=== PATIENT | male | born 1945 | race Caucasian/White ===

== ENCOUNTER 2016-08-26 22:18 | Observation (INO) | payer OTHER, BC ==
[2016-08-26] MEDS ORDERED: NS 1,000 ML IV ONE ×2 (22:24→23:23)
--- NOTE | 2016-08-26 22:34 | CPEKG ---
Heart Rate: 101 RR Interval: 594 P-R Interval: 136 QRSD Interval: 90 QT Interval: 368 QTC Interval: 477 P [place]: 68 QRS [place]: -7 T Wave [place]: 11 EKG Severity - BORDERLINE ECG - EKG Impression: SINUS TACHYCARDIA EKG Impression: MINIMAL ST DEPRESSION, INFERIOR LEADS EKG Impression: BORDERLINE PROLONGED QT INTERVAL Electronically Signed By: Nicko Casas 27-Aug-2016 06:58:16
--- NOTE | 2016-08-26 22:36 | EDPHY ---
H & P HPI/ROS: Chief Complaint: Syncope HPI: 71-year-old male with a history of hypertension, hyperlipidemia and he reports coronary artery disease had a witnessed syncopal episode approximately 30 minutes prior to arrival. Patient was standing and was witnessed to lose consciousness. He is held gently to the ground. He did have some posturing at that time. He did wake up and is awake and alert but feeling fatigue. Does state that he was hiking in the mountains all day today and did not have any water with him. He is a retired physician, general surgeon. He states he has a history of coronary disease and has a catheterization which shows some disease but has not had any stenting. He has not had a heart attack. Does have a history of a father who had a sudden cardiac arrest at 83. He has not had any chest pain or shortness of breath. No history of prior syncopal episodes in the past. No leg pain or swelling. No shortness of breath at this time. EMS gave him 325 mg of aspirin on route. ROS: 10 point Review of Systems is negative except as noted in the HPI. PMH: Hypertension, hyperlipidemia, coronary artery disease Medications: Atorvastatin and lisinopril, erectile dysfunction medication which he did take today Allergies: No known drug allergies Social History: No smoking, occasional alcohol, no recreational drug use Family History: Coronary artery disease Physical Exam: Gen: Awake, Alert, No Distress HEENT: Nose: no rhinorrhea Eyes: PERRLA, EOMI Mouth: Moist mucosa Neck: Supple, no JVD Chest: nontender, lungs clear to auscultation Heart: S1, S2 normal, no murmur Abd: Soft, non-tender, no guarding Back: no CVA tenderness, no midline tenderness Ext: no edema, non-tender Skin: no rash Neuro: CN II-XII intact, Sensation grossly intact, Strength 5/5 in bilateral upper and lower extremities Constitutional: Initial Vital Signs Temperature (C) 36.3 C 08/26/16 22:33 Heart Rate 102 H 08/26/16 22:33 Respiratory Rate 20 08/26/16 22:33 Blood Pressure 143/78 H 08/26/16 22:33 O2 Sat (%) 93 08/26/16 22:33 O2 Delivery Mode Room Air Allergies/Adverse Reactions: No Known Allergies Allergy (Unverified 08/26/16 22:30) Home Medications: Medication Instructions Recorded Lisinopril 08/26/16 Medical Decision Making - Diagnostics EKG Interpretation: ECG time 10:31 p.m. sinus tachycardia with a rate of 101. A normal axis. Normal intervals. Mild ST elevation V1, V2 about 1 mm with depression in leads II and aVF. ED Course/Re-evaluation: 22:40 ECG changes noted. Cardiology paged. 22:55 Dr Servin has reviewed the ECG. He is in agreement that there are some very mild concerning changes in V1 and V2 but he does not feel that these meet STEMI criteria at this point. Does not feel the patient needs any acute intervention. Is recommended to continue to follow the troponins. Admit the patient to telemetry overnight. They will consult on the patient morning. The patient does bump his troponin and they will re-evaluate at that time. Patient remains pain-free. No chest pain at this time. 23:10 I have discussed with Dr. Pena, hospitalist. She will admit to her service for further evaluation. - Data Points Laboratory Results: Laboratory Results 08/26/16 22:25 08/26/16 22:25 08/26/16 08/26/16 22:25 22:25 WBC 14.70 10^3/uL H 10^3/uL (3.80-9.50) RBC 4.38 10^6/uL L 10^6/uL (4.40-6.38) Hgb 13.8 g/dL g/dL (13.7-17.5) Hct 39.4 % L % (40.0-51.0) MCV 90.0 fL fL (81.5-99.8) MCH 31.5 pg pg (27.9-34.1) MCHC 35.0 g/dL g/dL (32.4-36.7) RDW 12.7 % % (11.5-15.2) Plt Count 257 10^3/uL 10^3/uL (150-400) MPV 9.6 fL fL (8.7-11.7) Neut % (Auto) 38.7 % L % (39.3-74.2) Lymph % (Auto) 51.0 % H % (15.0-45.0) [place] % (Auto) 6.9 % % (4.5-13.0) Eos % (Auto) 2.4 % % (0.6-7.6) Baso % (Auto) 0.6 % % (0.3-1.7) Nucleat RBC Rel Count 0.0 % % (0.0-0.2) Absolute Neuts (auto) 5.68 10^3/uL 10^3/uL (1.70-6.50) Absolute Lymphs (auto) 7.49 10^3/uL H 10^3/uL (1.00-3.00) Absolute Monos (auto) 1.02 10^3/uL H 10^3/uL (0.30-0.80) Absolute Eos (auto) 0.36 10^3/uL 10^3/uL (0.03-0.40) Absolute Basos (auto) 0.09 10^3/uL 10^3/uL (0.02-0.10) Absolute Nucleated RBC 0.00 10^3/uL 10^3/uL (0-0.01) Immature Gran % 0.4 % % (0.0-1.1) Immature Gran # 0.06 10^3/uL 10^3/uL (0.00-0.10) Sodium 139 mEq/L mEq/L (134-144) Potassium 3.6 mEq/L mEq/L (3.5-5.2) Chloride 102 mEq/L mEq/L (97-110) Carbon Dioxide 21 mEq/l L mEq/l (22-31) Anion Gap 16 mEq/L mEq/L (8-16) BUN 19 mg/dL mg/dL (7-23) Creatinine 1.1 mg/dL mg/dL (0.7-1.3) Estimated GFR > 60 Glucose 128 mg/dL H mg/dL (70-100) Calcium 10.1 mg/dL mg/dL (8.5-10.4) Troponin I < 0.012 ng/mL ng/mL (0-0.034) Medications Given: Discontinued Medications Sodium Chloride (Ns) 1,000 mls @ 0 mls/hr IV ONCE ONE PRN Reason: Wide Open Stop: 08/26/16 22:25 Last Admin: 08/26/16 22:36 Dose: 1,000 mls Departure - Departure Disposition: [facility] Inpatient Acute Clinical Impression: Syncope Condition: Fair Referrals: Patient,NotPresent [Unknown] - As per Instructions
[2016-08-26 22:38] LABS: % IMMATURE GRANULYOCYTES 0.4 % (0.0-1.1); ABSOLUTE IMMATURE GRANULOCYTES 0.06 10^3/uL (0.00-0.10); ADD DIFF? NO; ADD MORPH? NO; ADD SCAN? YES; ATYPICAL LYMPHOCYTE FLAG 10 (0-99); FRAGMENT RBC FLAG 0 (0-99); HEMATOCRIT 39.4 % (40.0-51.0); HEMOGLOBIN 13.8 g/dL (13.7-17.5); LEFT SHIFT FLG 0 (0-99); LIPEMIA HEMOLYSIS FLAG 90 (0-99); MEAN CELL HEMOGLOBIN 31.5 pg (27.9-34.1); MEAN PLATELET VOLUME 9.6 fL (8.7-11.7); PLATELET CLUMPS FLAG 0 (0-99); PLATELET COUNT 257 10^3/uL (150-400); RED BLOOD CELL COUNT 4.38 10^6/uL (4.40-6.38); RED CELL DISTRIBUTION WIDTH 12.7 % (11.5-15.2)
[2016-08-26 22:55] LABS: ANION GAP 16 mEq/L (8-16); CALCIUM 10.1 mg/dL (8.5-10.4); CARBON DIOXIDE 21 mEq/l (22-31); CHLORIDE 102 mEq/L (97-110); CREATININE 1.1 mg/dL (0.7-1.3); GLOMERULAR FILTRATION RATE > 60; GLUCOSE 128 mg/dL (70-100); POTASSIUM 3.6 mEq/L (3.5-5.2); SODIUM 139 mEq/L (134-144)
[2016-08-26 22:59] LABS: SCAN NEGATIVE
[2016-08-26 23:06] LABS: TROPONIN I < 0.012 ng/mL (0-0.034)
[2016-08-26] MEDS ORDERED: ONDANSETRON 4 MG/2 ML VIAL IVP PRN (23:34)
[2016-08-26] MEDS ORDERED: ONDANSETRON DISINTEGRATING 4 MG TAB PO PRN (23:34)
[2016-08-26] MEDS ORDERED: ACETAMINOPHEN 325 MG TAB PO PRN (23:34)
[2016-08-26] MEDS ORDERED: oxyCODONE IR 5 MG TAB PO PRN (23:34)
[2016-08-26] MEDS ORDERED: NS 1,000 ML IV SCH (23:45)
[2016-08-27 00:08] LABS: COLOR YELLOW; LEUKOCYTE ESTERASE,URINE NEGATIVE (NEGATIVE); NITRITE,URINE NEGATIVE (NEGATIVE)
[2016-08-27 00:56] LABS: MUCUS 1+ /lpf (NONE-1+)
--- NOTE | 2016-08-27 01:13 | PDGENHP ---
History and Physical - Chief Complaint syncope - History of Present Illness Patient is a 71-year-old male with a history of hypertension, hyperlipidemia and nonobstructive CAD who presents to the ED with complaint of an episode of loss of consciousness. Patient is in [place] visiting from [place], arrived on 08/23. He reports earlier in the day he felt to be in his usual state of health, spent the day hiking in [place]. He does admit that he did not maintain adequate water/fluid intake throughout the day while hiking. Then this evening while at dinner with his family he suddenly slumped backwards had a couple jerking movements of his limbs and loss consciousness. His family helped him to the floor and he quickly regained consciousness (LOC <20 seconds) . He had complete mentation with regaining of consciousness. When he attempted to sit up, patient again appeared presyncopal, so family laid him back down flat and called EMS. Patient denies any chest pain during this episode, also denies any palpitations, shortness of breath, nausea, cough. EMS gave patient a full dose aspirin en route to the ED. Patient did have about 2 glasses of wine at dinner, which is not unusual for him. Of note, patient report having a normal NM stress test about 3 years ago and had a cardiac CT about 2 years ago that showed mild, nonobstructive CAD. He has never had an OK or cardiac cath. He is a former smoker x 10 years, quit >25 years ago. On arrival to the ED patient was afebrile and hemodynamically stable. Labs revealed mild leukocytosis, negative troponin, normal BMP. EKG revealed normal sinus rhythm with slight ST depressions inferiorly. He was given IVF hydration and then admitted to the hospitalist service for further management. History Information - Allergies/Home Medication List Allergies/Adverse Reactions: No Known Allergies Allergy (Unverified 08/26/16 22:30) Home Medications: Lisinopril 08/26/16 [Last Taken Unknown] I have personally reviewed and updated: family history, medical history, social history, surgical history - Past Medical History Additional medical history: nonobstructive CAD. HLD. HTN. erectile dysfunction - Surgical History Additional surgical history: b/l meniscus repair - Family History Additional family history: F: OK at 83 - Social History Smoking Status: Former smoker Alcohol Use: Occasionally (2 glasses of wine nightly) Drug Use: None Additional social history: Lives in [place] with , on vacation in [place]. Retired general surgeon. Review of Systems ROS: 10pt was reviewed & negative except for what was stated in HPI & below Physical Exam Temp Pulse Resp BP Pulse Ox 36.6 C 108 H 16 154/91 H 94 08/27/16 00:25 08/27/16 00:25 08/27/16 00:25 08/27/16 00:25 08/27/16 00:25 Constitutional: no apparent distress, appears nourished, not in pain Eyes: PERRL, anicteric sclera, EOMI Ears, Nose, Mouth, Throat: moist mucous membranes, hearing normal, ears appear normal, no oral mucosal ulcers Cardiovascular: regular rate and rhythym, no murmur, rub, or gallop, pulses symmetric bilaterally, No JVD, No edema Peripheral Pulses: 2+: dorsalis-pedis (R), dorsalis-pedis (L) Respiratory: no respiratory distress, no rales or rhonchi, clear to auscultation Gastrointestinal: normoactive bowel sounds, soft, non-tender abdomen, no palpable masses, No guarding, No rebound Genitourinary: no bladder fullness, no bladder tenderness Skin: warm, normal color, no rashes or abrasions, no fluctuance, no induration, No mottled Musculoskeletal: full muscle strength, no muscle tenderness, normal joint ROM, no joint effusions Neurologic: AAOx3, sensation intact bilaterally, CN II-XII Intact, No weakness, No numbness, No pronator drift, No facial droop Psychiatric: interacting appropriately, not anxious, not encephalopathic, thought process linear Lab Data & Imaging Review 08/26/16 22:25 08/26/16 22: WBC 14.70 10^3/uL (3.80-9.50) H 08/26/16 22:25 RBC 4.38 10^6/uL (4.40-6.38) L 08/26/16 22:25 Hgb 13.8 g/dL (13.7-17.5) 08/26/16 22:25 Hct 39.4 % (40.0-51.0) L 08/26/16 22:25 MCV 90.0 fL (81.5-99.8) 08/26/16 22: MCH 31.5 pg (27.9-34.1) 08/26/16: MCHC 35.0 g/dL (32.4-36.7) 08/26/16: RDW 12.7 % (11.5-15.2) 08/26/16: Plt Count 257 10^3/uL (150-400) 08/26/16: MPV 9.6 fL (8.7-11.7) 08/26/16: Neut % (Auto) 38.7 % (39.3-74.2) L 08/26/16: Lymph % (Auto) 51.0 % (15.0-45.0) H 08/26/16: [place] % (Auto) 6.9 % (4.5-13.0) 08/26/16: Eos % (Auto) 2.4 % (0.6-7.6) 08/26/16: Baso % (Auto) 0.6 % (0.3-1.7) 08/26/16: Nucleat RBC Rel Count 0.0 % (0.0-0.2) 08/26/16: Absolute Neuts (auto) 5.68 10^3/uL (1.70-6.50) 08/26/16: Absolute Lymphs (auto) 7.49 10^3/uL (1.00-3.00) H 08/26/16: Absolute Monos (auto) 1.02 10^3/uL (0.30-0.80) H 08/26/16 22: Absolute Eos (auto) 0.36 10^3/uL (0.03-0.40) 08/26/16: Absolute Basos (auto) 0.09 10^3/uL (0.02-0.10) 08/26/16: Absolute Nucleated RBC 0.00 10^3/uL (0-0.01) 08/26/16: Immature Gran % 0.4 % (0.0-1.1) 08/26/16: Immature Gran # 0.06 10^3/uL (0.00-0.10) 08/26/16 22:25 D-Dimer 0.33 ug/mLFEU (0.00-0.50) 08/27/16 00:05 Sodium 139 mEq/L (134-144) 08/26/16 22:25 Potassium 3.6 mEq/L (3.5-5.2) 08/26/16 22:25 Chloride 102 mEq/L (97-110) 08/26/16 22:25 Carbon Dioxide 21 mEq/l (22-31) L 08/26/16 22:25 Anion Gap 16 mEq/L (8-16) 08/26/16 22:25 BUN 19 mg/dL (7-23) 08/26/16: Creatinine 1.1 mg/dL (0.7-1.3) 08/26/16 22:25 Estimated GFR > 60 08/26/16 22: Glucose 128 mg/dL (70-100) H 08/26/16: Calcium 10.1 mg/dL (8.5-10.4) 08/26/16: Troponin I < 0.012 ng/mL (0-0.034) 08/26/16 22:25 Urine Color YELLOW 08/27/16 00:00 Urine Appearance CLEAR 08/27/16 00:00 Urine pH 5.0 (5.0-7.5) 08/27/16 00:00 Ur Specific [place] 1.025 (1.002-1.030) 08/27/16 00:00 Urine Protein 1+ (NEGATIVE) H 08/27/16 00:00 Urine Ketones TRACE (NEGATIVE) H 08/27/16 00:00 Urine Blood NEGATIVE (NEGATIVE) 08/27/16 00:00 Urine Nitrate NEGATIVE (NEGATIVE) 08/27/16 00:00 Urine Bilirubin NEGATIVE (NEGATIVE) 08/27/16 00:00 Urine Urobilinogen NEGATIVE EU (0.2-1.0) 08/27/16 00:00 Ur Leukocyte Esterase NEGATIVE (NEGATIVE) 08/27/16 00:00 Urine RBC 1-3 /hpf (0-3) 08/27/16 00:00 Urine WBC 1-3 /hpf (0-3) 08/27/16 00:00 Ur Epithelial Cells TRACE /lpf (NONE-1+) 08/27/16 00:00 Calcium Oxalate Crystal PRESENT /hpf (NONE-1+) 08/27/16 00:00 Hyaline Casts 5-15 /lpf (0-1) 08/27/16 00:00 Urine Mucus 1+ /lpf (NONE-1+) 08/27/16 00:00 Urine Glucose NEGATIVE (NEGATIVE) 08/27/16 00:00 Visualized and Interpreted EKG results: Yes EKG Interpretation: Positive for: normal sinsus rhythm (ST depression in II, III , aVF) Assessment & Plan Assessment: Patient is a 71-year-old male with history of hypertension, hyperlipidemia and nonobstructive CAD, visiting [place] from [place], who presents to the ED with syncope. ED evaluation reveals negative initial troponin, negative d-dimer and normal sinus rhythm on EKG, with evidence of ST depressions. Plan: # syncope Suspect this is related to hypovolemia vs vasovagal event, given patient's history of hiking in elevation and the heat throughout the day without adequate hydration. Differential includes arrhythmia, acs, seizure, tia. PE ruled out with negative d-dimer. Initial VS are stable, but ekg does show slight ST depressions inferiorly, troponin negative. - continue IVF hydration overnight - monitor serial troponin, EKGs - monitor on telemetry - check TTE in am - monitor and replete electrolytes prn # abnormal ekg Horizontal ST depressions in II, III and aVF concerning for ischemia. Initial troponin negative and patient denies any chest pain associated with his event. It is possible these are chronic changes vs demand ischemia from acute dehydration. Will continue to monitor as described above. # HTN BP stable on presentation, will resume home med as tolerated. # HLD Check lipid panel, resume home statin. # ED Patient on cialis and lexapro. Avoid nitro/vasodilators. # dispo: Admit to observation for syncope work up # gen: NPO DVT ppx: obs, low risk Full code
[2016-08-27 05:10] LABS: INR 0.98 (0.83-1.16); PROTIME(PATIENT) 12.9 SEC (12.0-15.0)
[2016-08-27 05:11] LABS: APTT 25.5 SEC (23.0-38.0)
[2016-08-27 05:17] LABS: % IMMATURE GRANULYOCYTES 0.5 % (0.0-1.1); ABSOLUTE IMMATURE GRANULOCYTES 0.05 10^3/uL (0.00-0.10); ADD DIFF? NO; ADD MORPH? NO; ADD SCAN? NO; ANION GAP 10 mEq/L (8-16); ATYPICAL LYMPHOCYTE FLAG 0 (0-99); CALCIUM 8.9 mg/dL (8.5-10.4); CARBON DIOXIDE 21 mEq/l (22-31); CHLORIDE 108 mEq/L (97-110); CHOLESTEROL 131 mg/dL (140-220); CHOLESTEROL/HDL RATIO 2.85 RATIO (1.00-4.97); CREATININE 0.9 mg/dL (0.7-1.3); FRAGMENT RBC FLAG 0 (0-99); GLOMERULAR FILTRATION RATE > 60; GLUCOSE 108 mg/dL (70-100); HEMATOCRIT 34.4 % (40.0-51.0); HEMOGLOBIN 12.2 g/dL (13.7-17.5); HIGH DENSITY LIPOPROTEIN 46 mg/dL (40-65); LDL/HDL RATIO 1.04 RATIO (1.00-3.64); LEFT SHIFT FLG 10 (0-99); LIPEMIA HEMOLYSIS FLAG 90 (0-99); LOW DENSITY LIPOPROTEIN 48 mg/dL (80-100); MAGNESIUM 1.9 mg/dL (1.6-2.3); MEAN CELL HEMOGLOBIN 31.9 pg (27.9-34.1); MEAN CELL HEMOGLOBIN CONCENTR. 35.5 g/dL (32.4-36.7); MEAN CELL VOLUME 89.8 fL (81.5-99.8); MEAN PLATELET VOLUME 9.6 fL (8.7-11.7); NON-HIGH DENSITY LIPOPROTEIN 85 mg/dL (90-129); PLATELET CLUMPS FLAG 0 (0-99); PLATELET COUNT 194 10^3/uL (150-400); POTASSIUM 4.4 mEq/L (3.5-5.2); RED BLOOD CELL COUNT 3.83 10^6/uL (4.40-6.38); RED CELL DISTRIBUTION WIDTH 12.7 % (11.5-15.2); SODIUM 139 mEq/L (134-144); TRIGLYCERIDE 185 mg/dL (40-150); VERY LOW DENSITY LIPOPROTEINS 37 mg/dL (8-25)
[2016-08-27 05:26] LABS: CREATINE KINASE-MB FRACTION 1.04 ng/mL (0-3.19); TROPONIN I < 0.012 ng/mL (0-0.034)
--- NOTE | 2016-08-27 08:57 | CPEKG ---
Heart Rate: 73 RR Interval: 822 P-R Interval: 160 QRSD Interval: 86 QT Interval: 416 QTC Interval: 459 P [place]: 66 QRS [place]: -3 T Wave [place]: 20 EKG Severity - NORMAL ECG - EKG Impression: SINUS RHYTHM EKG Impression: BORDERLINE REPOLARIZATION ABNORMALITIES IN THE INFERIOR LEADS. EKG Impression: COMPARED WITH 08/26/2016 AT 10:31 P.M., REPOLARIZATION ABNORMALITIES ARE LESS EKG Impression: PRONOUNCED Electronically Signed By: Mervat Kothari 27-Aug-2016 11:50:43
[2016-08-27 09:07] VITALS: BP 145/90; PULSE 81; RESP 95; TEMP 97.9; O2SAT 96
--- NOTE | 2016-08-27 11:16 | ECHO ---
[id number] + + [address] : : [place] [address] : : [phone] + + Adult Echocardiographic Report + --+ :Name: RAIN KAISER Date: 08/27/2016 09:28 AM : : Hospital Admission Number: [id number] Location: 2 12: :: 1945 Gender: Male Height: 72 in : :Age: 71 yrs Weight: 195 lb : :Reason For Study: Syncope : : BSA: 2.1 meters2 : + --+ MMode/2D Measurements \T\ Calculations IVSd: 0.89 cm LVIDd: 5.2 cm FS: 34.0 % Ao root diam: LVPWd: 1.1 cm LVIDs: 3.4 cm EDV(Teich): 3.8 cm 129.8 ml LA dimension: ESV(Teich): 3.9 cm 48.7 ml EF(Teich): 62.5 % LVLd ap4: 8.7 cm SV(MOD-sp4): EDV(MOD-sp4): 68.0 ml 102.0 ml LVLs ap4: 6.8 cm ESV(MOD-sp4): 34.0 ml EF(MOD-sp4): 66.7 % Normal Measurement Values: + + :LVIDd (3.5-5.7cm) IVSd (0.6-1.1cm) LVPWd (0.6-1.1cm) Aortic Root (2.0-3.7cm)Left Atrium (1.5-4.0cm): :LV Vol(d) (76-115ml) LV Vol(s) (29-48ml) Ejec Fraction (50-65%)PV Silvano (0.6- 1.2m/s) TV Silvano (0.4-1.0m/s) : :MV E Silvano (0.8-1.0m/s)MV A Silvano (0.3-1.0m/s)LVOT Silvano (0.7-1.2m/s) Asc Ao Silvano ( 0.9-1.8m/s) : + + Doppler Measurements \T\ Calculations MV E max silvano: 79.5 cm/sec Ao V2 max: 123.5 cm/sec MV A max silvano: 92.3 cm/sec Ao max P.1 mmHg MV E/A: 0.86 Left Ventricle The left ventricle is normal in size. There is normal left ventricular wall thickness. Left ventricular systolic function is normal. Ejection Fraction = 65-70%. No regional wall motion abnormalities noted. Right Ventricle The right ventricle is normal in size and function. Atria The left atrial size is normal. Right atrial size is normal. The interatrial septum is intact with no evidence for an atrial septal defect. Mitral Valve The mitral valve is normal in structure and function. There is no evidence of mitral valve prolapse. There is no mitral valve stenosis. There is mild mitral regurgitation. Tricuspid Valve Normal tricuspid valve. There is trace tricuspid regurgitation. Aortic Valve The aortic valve is trileaflet. The aortic valve opens well. There is no aortic stenosis. There is no aortic insufficiency. Pulmonic Valve The pulmonic valve is normal in structure and function. There is no pulmonic valvular regurgitation. Great Vessels The aortic root is normal size. Borderline dilated ascending aorta. Pericardium/Pleural There is no pericardial effusion. Conclusion A complete two-dimensional transthoracic echocardiogram was performed (2D, M-mode, Doppler and color flow Doppler). Left ventricular systolic function is normal. Ejection Fraction = 65-70%. There are no regional wall motion abnormalities. Normal appearing valvuar structures. There is mild mitral regurgitation. There is trace tricuspid regurgitation. Final Reading Physician: Favio Campbell signed on 08/27/2016 11:15 AM Performed By: Natalie Gomez RDCS
--- NOTE | 2016-08-27 12:30 | PDCARST ---
CAR Stress Test Results Type of Stress Test: Nuclear TM stress test Indication: syncope Description of Procedure: After informed consent was obtained, pt was exercised according to Ace Protocol. Monitoring was performed with standard stress functional tester electrode placement. Vital signs were monitored according to protocol throughout the procedure. STRESS EKG AND HEMODYNAMIC DATA. Exercise time: 6: 30min. This is equivalent to: 7.6METS. Resting heart rate: 96 bpm. Resting blood pressure: 164/90 mmHg. Resting O2 saturation: 95%. Peak heart rate: 139 bpm. This is 92 % of age predicted maximum heart rate response. Peak blood pressure: 192/98 mmHg. Exercise O2: 97%. Arrhythmias : Rare PVCs and PACs in recovery. Reason for termination: The test was stopped due to target HR achieved. Symptoms: The patient experienced no typical symptoms of angina during stress or recovery. STRESS TEST ANALYSIS. Baseline ECG: SR. Stress ECG: SR with 1 mm horizontal STD. exercise induced ischemic ECG changes: Yes. Rhythm: PACs and PVCs in recovery. Blood pressure: Hypertensive blood pressure at rest with normal blood pressure response to exercise. Exercise tolerance: The patient has normal exercise tolerance adjusted for age and gender. Symptoms: No exercise induced symptoms. Impression: Stress ECG equivocal for ischemia with 1 mm STD that quickly resolved in recovery. DTS: +1 Conclusion: Await nuclear images.
--- NOTE | 2016-08-27 15:02 | PDDCSUM ---
Discharge Summary Discharge Summary: DISCHARGE SUMMARY DIAGNOSES 1. ACUTE SYNCOPE FELT TO BE DUE TO DEHYDRATION, ETOH, VAGAL EFFECT 2. DEHYDRATION 3. HX OF MILD NONOBSTR CAD 4. HX HTN MILD SYSTOLIC HTN HERE 5. GHYPERLIPIDEMIA PROCEDURES: echocardiogram: normal GXT with myocard perf imaging: asymptomatic on treadmill, stable vitals, negative nuclear imaging CONSULTATION: Dr Diamond HOSP COURSE: No recurrent syncopal sxs, no angina or CHF, overall stable, and with hydration now feels normal. Vitals and card monitor nl but for very mild syst HTN. His syncope is felt due to deydration, etoh, altitude, vagal effects. He is stable for DC to home. He will f/u iwth his pcp re blood pressure at home. MED CHANGES: none
--- NOTE | 2016-08-27 15:59 | GCON ---
[f rep st] CONSULTATION DATE OF CONSULTATION: 08/27/2016 CHIEF COMPLAINT: We have been asked by Dr. Austin to evaluate this patient with a chief complaint o f syncope. HISTORY OF PRESENT ILLNESS: The patient is a 71-year-old gentleman with risk factors including age, hypertension, and hyperlipidemia, who presented to the emergency department on 08/26/2016 with an e pisode of syncope. 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 He recently traveled to [facility] to visit family. On the day of admission, patient reports getting up and hiking [address] in t he morning. He did not bring water along and reports he was somewhat dehydrated at this time. Foll owing his hike, he went out for lunch and consumed 2 beers. Later that evening, while having dinner , he had a glass of wine as well. While eating dinner, patient had sudden loss of consciousness. H e denies symptoms of chest pain or palpitations prior to the event. There was no loss of bowel or b ladder control with the event. The event was witnessed by family members who helped him to the floo r where he gradually regained consciousness. He presented to the emergency department for further e valuation. In the emergency department, he was mildly hypertensive and tachycardic. He had an EKG performed, demonstrating sinus rhythm with inferior and lateral ST-segment depression. His initial biomarkers were within normal limits. Patient was treated with hydration with subsequent improvemen t in his symptoms. Subsequent biomarkers have remained within normal limits. The patient remains m oderately active, hiking and walking. He denies symptoms of chest pain or significant dyspnea with this activity. Patient does report a previous history of coronary artery disease. He underwent car diac catheterization approximately 2 years previously, demonstrating mild nonobstructive coronary ar mi disease. He also reports a previous nuclear stress test where the exercise tolerance test was abnormal with ST-segment depression, but nuclear imaging was within normal limits. Patient has been managing his risk factors with lisinopril, aspirin, and atorvastatin. PAST MEDICAL HISTORY: 1. Nonobstructive coronary artery disease by angiogram in 2014. 2. Hypertension. 3. Hyperlipidemia. 4. Status post bilateral meniscus repair. MEDICATIONS: 1. Aspirin. 2. Lisinopril. 3. Atorvastatin. ALLERGIES: No known drug allergies. SOCIAL HISTORY: Patient is a retired general surgeon. He does not smoke. FAMILY HISTORY: Noncontributory. REVIEW OF SYSTEMS: 10-point review of systems is within normal limits. PHYSICAL EXAMINATION: GENERAL: Patient is resting comfortably in bed. He does not appear to be in acute distress. VITAL SIGNS: Temperature is afebrile, pulse is 87, blood pressure 146/90, respira tory rate is 18, SaO2 is 92% on room air. HEENT: Normocephalic atraumatic. Extraocular muscles in tact. NECK: No JVD. No bruits. LUNGS: Clear to auscultation bilaterally. CARDIOVASCULAR: Regu lar rate and rhythm. S1, S2. No murmurs, rubs, or gallops appreciated. ABDOMEN: Soft, nontender. Normoactive bowel sounds. No hepatosplenomegaly. EXTREMITIES: No clubbing, cyanosis, or edema. SKIN: No evidence of rashes. NEURO: Patient is awake, alert, and oriented x3. LABORATORY: White blood cell count is 11.02, hemoglobin is 12.2, hematocrit is 34.4, platelet count is 194. INR is 0.98. Sodium 139, potassium 4.4, chloride 108, CO2 21, BUN 17, creatinine 0.9. Tr oponin within normal limits x2. LDL cholesterol is 48. EKG demonstrates sinus rhythm with inferior and lateral ST-segment depression. Echocardiogram demon strates normal left ventricular size and systolic function with no segmental wall motion abnormaliti es. Patient had no significant valvular disease present. ASSESSMENT AND PLAN: The patient is a 71-year-old gentleman with: 1. Syncope: Patient presents with an episode of syncope, likely secondary to probable dehydration. His echocardiogram demonstrates normal left ventricular size and systolic function with no signifi cant valvular abnormalities. Telemetry monitoring overnight demonstrates no significant arrhythmias . Given patient's history of coronary artery disease, I think it would be reasonable to perform a s tress test versus cardiac catheterization for risk stratification. Reviewed risks and benefits of b oth tests with patient and family. Patient wishes to proceed with the stress test to further evalua te his condition. 2. Hypertension: Patient has a long history of hypertension. He has been managed with lisinopril therapy at 10 mg daily. Recommend increasing lisinopril to 20 mg daily for improved blood pressure control. 3. Hyperlipidemia: The patient's LDL cholesterol is at goal on atorvastatin therapy. Would contin ue current therapy. /[id number]
[2016-08-28] MEDS ORDERED: ASPIRIN 325 MG TAB PO SCH (09:00)
[2016-08-28] MEDS ORDERED: CITALOPRAM 20 MG TAB PO SCH (09:00)
[2016-08-28] MEDS ORDERED: NON-FORMULARY NEW DRUG (Citalopram Hydrobromide [Celexa 10 Mg] 10 MG) PO SCH (09:00)
[2016-08-28] MEDS ORDERED: Tadalafil [Cialis] 5 MG PO SCH (09:00)
[2016-08-28] MEDS ORDERED: ATORVASTATIN CALCIUM 40 MG TAB PO SCH (09:00)
[2016-08-28] MEDS ORDERED: NON-FORMULARY NEW DRUG (Tadalafil [Cialis] 5 MG) PO SCH (09:00)
[2016-08-28] MEDS ORDERED: LISINOPRIL 10 MG TAB PO SCH (09:00)
== END 2016-08-27 15:40 | disposition home or self-care (01) ==
LOC: F2W 08-27 00:14
PROVIDERS: ADMIT Internal Medicine; ATTEND Internal Medicine
PROC: B246ZZZ Ultrasonography of Right and Left Heart (ICD-10-PCS; principal; 2016-08-27)
DX: R55 Syncope and collapse (principal); E86.0 Dehydration; R94.31 Abnormal electrocardiogram [ECG] [EKG]; I25.10 Atherosclerotic heart disease of native coronary artery without angina pectoris; I10 Essential (primary) hypertension; E78.5 Hyperlipidemia, unspecified; N52.9 Male erectile dysfunction, unspecified; Z79.82 Long term (current) use of aspirin; Z87.891 Personal history of nicotine dependence; Z82.49 Family history of ischemic heart disease and other diseases of the circulatory system
CPT/HCPCS: 78452; 93005; 93306; 96360; 99285; A9500; G0378